=== PATIENT | female | born 1955 | race Caucasian/White ===

== ENCOUNTER 2017-04-30 23:01 | Inpatient (IN) | payer OTHER ==
[~2017-04-30] VITALS: Ht 167.6 cm; Wt 132.2 kg
[2017-04-30] MEDS ORDERED: LOSARTAN POTASS50 MG PO (23:28)
[2017-04-30] MEDS ORDERED: PRISTIQ ER100 MG PO (23:29)
[2017-04-30] MEDS ORDERED: NASONEX17 GM NAS (23:29)
[2017-04-30] MEDS ORDERED: METFORMIN HCL500 M3 PO (23:50)
[2017-04-30] MEDS ORDERED: ROSUVASTATIN CA10 MG PO (23:51)
[2017-04-30] MEDS ORDERED: OMEPRAZOLE20 MG PO (23:51)
[2017-04-30] MEDS ORDERED: TENORMIN25 MG PO (23:53)
[2017-04-30] MEDS ORDERED: TYLENOL325 MG PO (23:53)
[2017-04-30] MEDS ORDERED: IBUPROFEN200 MG PO (23:55)
[2017-04-30] MEDS ORDERED: TURMERIC500 M2 PO (23:57)
[2017-04-30] MEDS ORDERED: PROBIOTIC1 EAC1 PO (23:58)
[2017-04-30] MEDS ORDERED: FLAXSEED1000 MG PO (23:58)
[2017-04-30] MEDS ORDERED: CENTRUM SILVER1 EAC5 PO (23:59)
[2017-04-30] MEDS ORDERED: DOCUSATE SODIU100 MG PO (23:59)
[2017-05-01] MEDS ORDERED: ASPIRIN325 MG PO
[2017-05-01] MEDS ORDERED: VITAMIN D2000 UNIT PO
[2017-05-01] MEDS ORDERED: OYSTER SHELL C500 MG PO (00:01)
--- NOTE | 2017-05-01 02:35 | NUR ---
PATIENT ARRIVED TO THE FLOOR VIA STRETCHER. PATIENT SCOOTED FROM THE STRETCHER TO THE BED. PATIENTS INITIAL INTAKE ASSESMENT COMPLETED. PATIENTS ORDERS PUT INTO PLACE. PATIENT DENIES ANY PAIN AT THIS TIME. NO REDNESS NOTED ON THE INNER RIGHT THIGH. NON-TENDER TO THE TOUCH. PATIENT ASSISTED TO THE RESTROOM A SBA. PATIENT IS STEADY ON HER FEET. PATIENT IS NOW BACK IN BED RESTING. PATIENT OREIENTED TO FLOOR AND ROOM. PATIENT EDUCATED ON THE USE OF THE CALL LIGHT. NO FURTHER REQUESTS. CALL LIGHT IN REACH.
--- NOTE | 2017-05-01 04:19 | NUR ---
PATIENT ASSISTED TO THE RESTROOM. PATIENT DENIES ANY PAIN. PATIENT IS BACK IN BED RESTING. PATIENT IS A SBA AND IS STEADY ON HER FEET. CALL LIGHT IN REACH. NO FURTHER NEEDS AT THIS TIME. CALL LIGHT IN REACH.
--- NOTE | 2017-05-01 05:27 | NUR ---
PATIENT HAS RESTED WELL SINCE ARRIVAL TO THE FLOOR. PATIENT DENIED ANY PAIN. PATIENT IS ON AND AD DIET. PATIENT IS ON TELE #10, SR, HR IN THE 90'S. PATIENT IS LEFT ARM RESTRICTED. PATIENT IS A SBA AND IS STEADY ON HER FEET. PATIENT IS [id number] AND USES CALL LIGHT [employer]
--- NOTE | 2017-05-01 06:28 | NUR ---
PATIENTS VITALS TAKEN AND RECORDED. PATIENT DENIES ANY PAIN AT THIS TIME. CALL LIGHT IN REACH.
--- NOTE | 2017-05-01 07:15 | NUR ---
BEDSIDE HANDOFF REPORT RECEIVED FROM [employer]ANK DEPARTMENT SUPERVISOR RN. PT SLEEPING LEFT UNDISTURBED.
--- NOTE | 2017-05-01 08:24 | NUR ---
PT RESTING IN BED. PT DENIES CHEST PAIN, DENIES SOB. LUNG SOUNDS CLEAR. PT WITH PAIN TO RIGHT LEG STATES "ITS NOT TOO BAD", NO SWELLING OR REDNESS NOTED, PULSES PALPABLE. PT ASSISTED WITHORDERING BREAKFAST, DECREASED APPETITE, BLOOD GLUCOE 129. PT WITH ACTIVE BOWEL TONES, DENIES NAUSEA. PT SBA TO BATHROOM, VOIDED. IV TO RIGHT ARM INFUSING AT 75 ML/HR.
--- NOTE | 2017-05-01 08:30 | EKG ---
[facility] [address] [place] [address] Signed Sinus tachycardia Possible Left atrial enlargement Left ventricular hypertrophy Possible Inferior infarct , age undetermined Abnormal ECG No previous ECGs available Confirmed by JEFRY TIERNEY MD ([id number] on 05/01/2017 8:30:04 AM Electronically Signed By: JEFRY TIERNEY MD 05/01/17 0830 PATIENT NAME: KERVIN PASTRANA Electrocardiogram DATE OF : 59 PHYSICIAN: JEFRY TIERNEY MD REPORT #: [id number] REPORT IS CONFIDENTIAL AND NOT TO BE RELEASED WITHOUT AUTHORIZATION
--- NOTE | 2017-05-01 09:41 | NUR ---
PT AWAKE IN BED. AM CARE. PICKED UP ROOM FRESH ICE WATER. LINEN CHANGE.
== END 2017-05-01 11:50 | disposition home or self-care (01) | DRG 301 ==
LOC: ED 23:01 → MS 05-01 01:32
PROVIDERS: ADMIT Internal Medicine
DX: I82.401 Acute embolism and thrombosis of unspecified deep veins of right lower extremity (principal); R50.9 Fever, unspecified; Z79.82 Long term (current) use of aspirin; I10 Essential (primary) hypertension
CPT/HCPCS: 71010; 80053; 83605; 85025; 85379; 85610; 85730; 87040; 93005; 93010; 93971; 96360; 96372; 99285; J1650; J7030